=== PATIENT | male | born 1960 | race Caucasian/White ===

== ENCOUNTER 2016-07-10 13:11 | Observation (INO) | payer OTHER, MEDICARE ==
[~2016-07-10] VITALS: Ht 180.3 cm; Wt 65.1 kg
[2016-07-10 13:12] VITALS: BP 137/77; PULSE 85; RESP 14; TEMP 98.2; O2SAT 98
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
--- NOTE | 2016-07-10 17:56 | RADRPT ---
EXAM DATE/TIME: 07/10/2016 17:29 [facility] COMPARISON: No previous studies available for comparison. INDICATIONS : Chest pain. MEDICAL HISTORY : Chronic obstructive pulmonary disease. Myocardial infarction. Stroke. SURGICAL HISTORY : None. ENCOUNTER: Initial ACUITY: 1 day PAIN SCORE: 10 LOCATION: Bilateral chest FINDINGS: A single view of the chest demonstrates the lungs to be symmetrically aerated without evidence of mas s, infiltrate or effusion. The cardiomediastinal contours are unremarkable. CONCLUSION: 1. No acute findings. Previous plate and screw fixation left clavicle. Remote lower right rib fractur es. Wild Molina MD on July 10, 2016 at 17:53 Board Certified Radiologist. This report was verified electronically.
[2016-07-10 18:11] LABS: AUTOMATED NEUTROPHIL # 3.5 TH/MM3 (1.8-7.7); BASOPHIL # 0.1 TH/MM3 (0-0.2); BASOPHIL % 0.8 % (0.0-2.0); EOSINOPHIL # 0.1 TH/MM3 (0-0.4); EOSINOPHIL % 2.1 % (0.0-4.0); HEMATOCRIT 45.8 % (39.0-51.0); HEMO FLAGS DIFF FINAL; LYMPH % 36.3 % (9.0-44.0); LYMPHOCYTE # 2.6 TH/MM3 (1.0-4.8); MEAN CELL VOLUME 94.1 FL (80.0-100.0); MEAN CORPUSCULAR HEMOGLOBIN 31.2 PG (27.0-34.0); MEAN CORPUSCULAR HGB CONC 33.1 % (32.0-36.0); MONO % 12.1 % (0.0-8.0); NEUT % 48.7 % (16.0-70.0); PLATELET COUNT 192 TH/MM3 (150-450); RED BLOOD COUNT 4.87 MIL/MM3 (4.50-5.90); RED CELL DISTRIBUTION WIDTH 14.8 % (11.6-17.2); WHITE BLOOD COUNT 7.1 TH/MM3 (4.0-11.0)
[2016-07-10 18:16] LABS: BLOOD, URINE NEG (NEG); GLUCOSE,URINE NEG (NEG); KETONE, URINE NEG (NEG); NITRITE,URINE NEG (NEG); URINE COLOR LIGHT-YELLOW (YELLW/STRAW)
[2016-07-10 18:20] LABS: AMPHETAMINE, URINE NEG (NEG); APTT (PATIENT) 27.6 SEC (24.3-30.1); BARBITURATES, URINE POS (NEG); COCAINE, URINE NEG (NEG); INTERNATIONAL NORMALIZED RATIO 0.9 RATIO; PROTHROMBIN TIME - PATIENT 10.4 SEC (9.8-11.6)
[2016-07-10 18:26] LABS: COMMENT (UR) CATH-CULT NOT IND; CULTURE IF INDICATED CATH CULTURE NOT IND
[2016-07-10 18:31] LABS: ANION GAP 6 MEQ/L (5-15); AST (GOT) 15 U/L (15-37); BICARBONATE 25.4 MEQ/L (21.0-32.0); BLOOD UREA NITROGEN 11 MG/DL (7-18); CHLORIDE 108 MEQ/L (98-107); GLOMERULAR FILTRATION RATE 121 ML/MIN (>89); POTASSIUM 4.2 MEQ/L (3.5-5.1); SODIUM (NA) 139 MEQ/L (136-145)
[2016-07-10 18:36] LABS: ALKALINE PHOSPHATASE 125 U/L (45-117); ALT (GPT) 16 U/L (12-78); TOTAL BILIRUBIN ADULT 0.1 MG/DL (0.2-1.0)
[2016-07-10 18:42] LABS: CREATINE KINASE 93 U/L (39-308)
--- NOTE | 2016-07-10 19:12 | RADRPT ---
EXAM DATE/TIME: 07/10/2016 18:10 [facility] COMPARISON: No previous studies available for comparison. INDICATIONS : Extremity numbness. MEDICAL HISTORY : Hypertension. Chronic obstructive pulmonary disease. SURGICAL HISTORY : None. IM rodding right femur/ ENCOUNTER: Initial ACUITY: 2 day PAIN SCORE: 5/10 LOCATION: neck TECHNIQUE: Multiplanar, multisequence MRI examination of the cervical spine was performed. FINDINGS: VERTEBRAE: Normal vertebral body height. Homogeneous marrow signal. ALIGNMENT: No evidence of subluxation. CORD: There is abnormal T2 signal present within the cord centered at the C4-5 disc space level, presumably contusion or myelomalacia associated with prominent canal compromise. POST FOSSA: The cerebellar tonsils are normal in position. C2-C3: The thecal sac has a normal configuration. There is no evidence of disc herniation or spinal canal s tenosis. The neural foramina are patent bilaterally. C3-C4: Broad central to slightly left paracentral disc protrusion moderately indenting ventral thecal sac. M ild superimposed dorsal ligament hypertrophy contributing to mild concentric canal stenosis. C4-C5: Broad undulating dorsal disc protrusion, mildly eccentric to the right with severe canal stenosis exa cerbated by dorsal ligamentous hypertrophy. There is mild compressive deformity involving the cervica l cord and signal changes within the cord indicating contusion or myelomalacia. Moderate asymmetric r ight sided foraminal stenosis also present. C5-C6: No broad dorsal disc protrusion with slight indentation of ventral thecal sac. C6-C7: Slight broad dorsal disc protrusion with mild indentation of the ventral thecal sac. C7-T1: The thecal sac has a normal configuration. There is no evidence of disc herniation or spinal canal s tenosis. The neural foramina are patent bilaterally. CONCLUSION: Significant disc protrusion contributing to canal stenosis and cord compression at C4-5. Less severe changes at adjacent levels. See above Tremaine Quiros MD on July 10, 2016 at 19:07 Board Certified Radiologist. This report was verified electronically.
--- NOTE | 2016-07-10 19:14 | RADRPT ---
EXAM DATE/TIME: 07/10/2016 18:10 [facility] COMPARISON: No previous studies available for comparison. INDICATIONS : Extremity weakness. MEDICAL HISTORY : Hypertension. Chronic obstructive pulmonary disease. SURGICAL HISTORY : IM rodding rt femur/amputation rt lower leg ENCOUNTER: Initial ACUITY: 2 day PAIN SCORE: 3/10 LOCATION: thoracic TECHNIQUE: Multiplanar multisequence MRI of the thoracic spine was performed. FINDINGS: VERTEBRA: Normal vertebral body height. Homogeneous marrow signal. ALIGNMENT: Normal. CORD: Normal position and configuration. T1-T2: Normal. T2-T3: Broad mild right paracentral disc protrusion slightly indenting the thecal sac in the lateral recess region. Canal and foramina are adequate. T3-T4: The thecal sac has a normal diameter. No evidence of disc bulge or protrusion. T4-T5: The thecal sac has a normal diameter. No evidence of disc bulge or protrusion. T5-T6: The thecal sac has a normal diameter. No evidence of disc bulge or protrusion. T6-T7: The thecal sac has a normal diameter. No evidence of disc bulge or protrusion. T7-T8: Right paracentral disc protrusion mildly indenting the right lateral recess and producing mild asymme tric right-sided foraminal stenosis. Canal is adequate. T8-T9: The thecal sac has a normal diameter. No evidence of disc bulge or protrusion. T9-T10: Right paracentral disc protrusion moderately indent the thecal sac in the lateral recess and producin g mild asymmetric right-sided foraminal narrowing. T10-T11: The thecal sac has a normal diameter. No evidence of disc bulge or protrusion. T11-T12: The thecal sac has a normal diameter. No evidence of disc bulge or protrusion. T12-L1: The thecal sac has a normal diameter. No evidence of disc bulge or protrusion. CONCLUSION: Small multilevel disc protrusions as above. The lesions at T7-8 and T9-10 may produce right-sided rad icular symptoms. Tremaine Quiros MD on July 10, 2016 at 19:11 Board Certified Radiologist. This report was verified electronically.
--- NOTE | 2016-07-10 19:18 | RADRPT ---
EXAM DATE/TIME: 07/10/2016 18:10 [facility] COMPARISON: No previous studies available for comparison. INDICATIONS : Extremity numbness. MEDICAL HISTORY : Chronic obstructive pulmonary disease. Hypertension. SURGICAL HISTORY : IM rodding rt femur/BTK amputation rt leg. ENCOUNTER: Initial ACUITY: 2 day PAIN SCORE: 4/10 LOCATION: lumbar TECHNIQUE: Multiplanar multisequence MRI of the lumbar spine was performed without contrast. FINDINGS: Small bilateral renal cysts are noted. The most caudal appearing lumbar vertebra is numbered as L5. VERTEBRAE: Homogeneous signal. Normal alignment. CONUS: Normal level and configuration. T12-L1: The thecal sac has a normal diameter. No evidence of disc bulge or protrusion. The neural foramina are patent bilaterally. L1-L2: The thecal sac has a normal diameter. No evidence of disc bulge or protrusion. The neural foramina are patent bilaterally. L2-L3: Annular disc bulge with broad undulating dorsal disc protrusion producing moderate indentation of the thecal sac. Mild canal stenosis. The foramina appear adequate. L3-L4: Slight annular disc bulge without significant protrusion, canal or foraminal stenosis. L4-L5: The thecal sac has a normal diameter. No evidence of disc bulge or protrusion. The neural foramina are patent bilaterally. L5-S1: Severe disc degeneration with broad undulating dorsal disc protrusion producing mild indentation of t he thecal sac. Mild asymmetrically right-sided foraminal stenosis. Posterior facet arthropathy worse on the left than the right CONCLUSION: Moderate dorsal disc protrusion at L2-3 producing mild canal stenosis. Severe disc degeneration with broad protrusion at L5-S1 producing mild asymmetrically right-sided for aminal stenosis. Tremaine Quiros MD on July 10, 2016 at 19:13 Board Certified Radiologist. This report was verified electronically.
[2016-07-10 19:19] VITALS: BP 139/81; PULSE 56; RESP 16; O2SAT 95
[2016-07-10] MEDS ORDERED: MORPHINE SULFATE 4 MG/ML INJ IV PUSH ONE (20:45)
[2016-07-10] MEDS ORDERED: DEXAMETHASONE SOD PHOS 20 MG/5 ML VIAL IV PUSH ONE (20:45)
[2016-07-10] MEDS ORDERED: SODIUM CHLORIDE 0.9% FLUSH 5 ML FLUSH FLUSH PRN (21:30)
[2016-07-10] MEDS ORDERED: NALOXONE HCL 0.4 MG/ML AMP IV PRN (21:30)
[2016-07-10] MEDS ORDERED: MORPHINE SULFATE 4 MG/ML INJ IV PUSH PRN (21:45)
[2016-07-10] MEDS: PANTOPRAZOLE SODIUM 40 MG VIAL IV PUSH SCH (22:15)
[2016-07-10] MEDS: ONDANSETRON HCL 4 MG/2 ML VIAL IVP PRN (22:17)
[2016-07-11] MEDS: DEXAMETHASONE SOD PHOS 4 MG/ML VIAL IV PUSH SCH ×4 (00:24→19:47)
[2016-07-11] MEDS: HYDROmorphone HCL PF 1 MG/ML VIAL IV PUSH PRN ×4 (01:35→22:54)
[2016-07-11 02:08] VITALS: BP 131/76; PULSE 70; RESP 18; TEMP 98.1; O2SAT 98
[2016-07-11 04:54] VITALS: BP 115/73; PULSE 60; RESP 18; O2SAT 96
[2016-07-11] MEDS: ONDANSETRON HCL 4 MG/2 ML VIAL IVP PRN (04:54)
[2016-07-11 05:05] LABS: AUTOMATED NEUTROPHIL # 6.9 TH/MM3 (1.8-7.7); BASOPHIL % 0.3 % (0.0-2.0); EOSINOPHIL % 0.1 % (0.0-4.0); HEMATOCRIT 45.4 % (39.0-51.0); HEMO FLAGS DIFF FINAL; LYMPH % 7.2 % (9.0-44.0); LYMPHOCYTE # 0.5 TH/MM3 (1.0-4.8); MEAN CORPUSCULAR HEMOGLOBIN 31.4 PG (27.0-34.0); MEAN CORPUSCULAR HGB CONC 33.4 % (32.0-36.0); MONO % 1.7 % (0.0-8.0); NEUT % 90.7 % (16.0-70.0); PLATELET COUNT 182 TH/MM3 (150-450); RED BLOOD COUNT 4.83 MIL/MM3 (4.50-5.90); RED CELL DISTRIBUTION WIDTH 14.7 % (11.6-17.2); WHITE BLOOD COUNT 7.6 TH/MM3 (4.0-11.0)
[2016-07-11 05:25] LABS: BICARBONATE 23.8 MEQ/L (21.0-32.0); POTASSIUM 4.8 MEQ/L (3.5-5.1)
[2016-07-11 07:20] VITALS: BP 124/78; PULSE 76; RESP 17; TEMP 97.7; O2SAT 99
[2016-07-11] MEDS ORDERED: ACETAMINOPHEN/HYDROcodone 325 MG/5 MG TAB PO PRN ×2 (08:15→08:30)
[2016-07-11] MEDS ORDERED: HYDROmorphone HCL PF 1 MG/ML VIAL IV PRN ×3 (08:15→08:30)
[2016-07-11] MEDS ORDERED: ACETAMINOPHEN 325 MG TAB PO PRN ×3 (08:15→08:30)
[2016-07-11] MEDS ORDERED: MAGNESIUM HYDROXIDE SUSP 30 ML CUP PO PRN ×3 (08:15→14:30)
[2016-07-11] MEDS ORDERED: BISACODYL 10 MG SUPP PR PRN ×2 (08:15→08:30)
[2016-07-11] MEDS ORDERED: GLUCAGON 1 MG/ML VIAL OTHER PRN (08:30)
[2016-07-11] MEDS ORDERED: DEXTROSE 50% IN WATER 50 ML VIAL(D50) IV PUSH PRN (08:30)
[2016-07-11] MEDS ORDERED: SENNOSIDES 8.6 MG TAB PO PRN (08:30)
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
[2016-07-11] MEDS: PANTOPRAZOLE SODIUM 40 MG VIAL IV PUSH SCH ×2 (08:50→22:56)
[2016-07-11] MEDS: DOCUSATE SODIUM 100 MG CAP PO SCH ×3 (08:52→22:56)
[2016-07-11] MEDS ORDERED: SODIUM CHLORIDE 0.9% FLUSH 5 ML FLUSH FLUSH SCH (09:00)
[2016-07-11] MEDS ORDERED: RESP: ALBUTEROL 2.5 MG/3 ML NEB (SCH) ONE (10:13)
[2016-07-11] MEDS ORDERED: FAMOTIDINE 20 MG/2 ML VIAL ONE (10:21)
[2016-07-11] MEDS ORDERED: MIDAZOLAM HCL 2 MG/2 ML VIAL ONE (10:38)
[2016-07-11] MEDS ORDERED: THROMBIN (TOPICAL) 5,000 UNIT VIAL ONE (10:53)
[2016-07-11] MEDS ORDERED: BUPIVACAINE/EPINEPHRINE 0.5% 50 ML VIAL ONE (10:53)
[2016-07-11] MEDS ORDERED: VANCOMYCIN HCL 1000 MG VIAL ONE ×2 (10:53→11:28)
[2016-07-11] MEDS ORDERED: GELFOAM SIZE 100 ONE (10:54)
[2016-07-11] MEDS: INSULIN ASPART SUPPLEMENTAL SCALE SQ SCH ×4 (11:00→21:00)
--- NOTE | 2016-07-11 11:36 | EKG ---
Date Performed: 07/10/2016 Time Performed: 19:59:00 PTAGE: 56 years EKG: Sinus rhythm WITH OCCASIONAL VENTRICULAR PREMATURE COMPLEXES POSSIBLE LEFT ATRIAL ENLARGEMENT POSSIBLE RIGHT VENT RICULAR CONDUCTION DELAY BORDERLINE ECG NO PREVIOUS TRACING DOCTOR: Ariel Reese Interpretating Date/Time 07/11/2016 11:35:57
[2016-07-11] MEDS ORDERED: VANCOMYCIN HCL 1000 MG VIAL OTHER ONE (11:50)
[2016-07-11] MEDS ORDERED: ONDANSETRON HCL 4 MG/2 ML VIAL IV PUSH ONE (12:00)
[2016-07-11] MEDS ORDERED: LACTATED RINGER'S 1000 ML INJ 1,000 ML IV ONE (12:00)
[2016-07-11] MEDS ORDERED: PROPOFOL 200 MG/20 ML AMP IV ONE (12:00)
[2016-07-11 14:00] VITALS: BP 160/78; PULSE 80; RESP 16; TEMP 96.5; O2SAT 95
[2016-07-11] MEDS ORDERED: NS + KCL 20 MEQ INJ 1,000 ML IV SCH (14:17)
[2016-07-11] MEDS ORDERED: *RESP: ALBUTEROL 2.5 MG/3 ML NEB (PRN) PERIprocedural Use ONLY NEB ONE (14:21)
[2016-07-11] MEDS ORDERED: fentaNYL CITRATE 250 MCG/5 ML AMP ONE (14:24)
--- NOTE | 2016-07-11 14:24 | PD.OP ---
Rayshawn Dinh, Operative Report Date of Surgery: Jul 11, 2016 Preoperative Diagnosis: Severe cervical myelopathy from C3-4 and C4-5 the disc osteophyte complex with spinal cord compression Postoperative Diagnosis: Same Procedure: Anterior cervical C3-4 and C4-5 microdiscectomy with interbody fusion; anterior C3-5 cervical plate placement; C3-4 and C4-5 interbody cage placement; microsurgical technique Anesthesia: Gen. endotracheal by Muriel Castillo Surgeon: Dion Prakash M.D. Emergency Department Director(s): Jewell Caraballo Operation and Findings: Following administration of general endotracheal anesthesia, the patient received a gram of vancomycin and Decadron 10 mg intravenously. Sequential compression devices were placed in supine position on a Oli table and all pressure points adequately padded. The head secured in a donut and anterior cervical region then shaved and prepped with Chloraprep and sterilely draped with Ioban along with the usual sterile draping. A transverse skin incision on the left side of the neck was then made after infiltrating the skin with 0.5% Marcaine with epinephrine solution extending down through the platysma. At the anterior border of the sternocleidomastoid further dissection was undertaken developing a plane between the carotid sheath laterally and the trachea esophagus medially. The prevertebral fascia was exposed and dissected out. The medial attachments of the longus colli muscles were detached and a self- retaining retractor used for exposure. The C3-4 disc space was localized with a marking pin in the disc space and using lateral fluoroscopy. [place] distraction screws 14 mm length were placed one in the C3 and one in the C5 body for interbody distraction and exposure. There was significant disc degeneration with disc height collapse and anterior osteophytes noted at both levels and the osteophytes were resected with a Leksell and annulus incised with a 15 blade and further dissection undertaken using microtechnique with microscope magnification. Diskectomy was undertaken with pituitaries and the endplates were also decorticated with curettes and drill bit. And more posteriorly there was disk osteophyte complex compressing the thecal sac along with a significant uncovertebral joint hypertrophy with spinal and foraminal stenosis which was decompressed along with removal of the posterior longitudinal ligaments at both levels. The foramen was decompressed bilaterally using a Kerrison's and palpation with a nerve hook, the exiting nerve roots were felt to be free. The area was then copiously irrigated. I then placed a Peek cage packed with local autograft bone at the C3-4 and another at C4-5 interspace under fluoroscopy guidance. [place] distraction pins were removed and the holes plugged with Gelfoam for hemostasis. In order to facilitate the fusion and provide stabilization, a Precision spine cervical plate was then placed with two 14 mm variable angle screws in the C3 and C4 body and two 14 mm fixed angle screws in the C5 body. The plate screw locking mechanism was then engaged. AP and lateral fluoroscopy confirmed good placement of the construct and the retractor was then removed. Muscular bleeding points were cauterized with bipolar cautery and Gelfoam was then also used for hemostasis which was removed. The platysma was then approximated using 3-0 Vicryl interrupted stitches and 3-0 Vicryl subcuticular stitch also placed in an interrupted fashion, and final skin closure was with Mastisol and Steri-Strips. Sterile dressing was then applied. The patient was then extubated and taken to the recovery room. There are no intraoperative complications and all sponge and needle counts were correct at the end of procedure. Estimated blood loss was about 50 cc. The patient did undergo intraoperative neurologic monitoring which remained stable throughout the surgery. Dion Prakash MD Jul 11, 2016 14:24
[2016-07-11] MEDS ORDERED: CYCLOBENZAPRINE HCL 10 MG TAB PO PRN (14:30)
[2016-07-11] MEDS ORDERED: MAGNESIUM SULFATE INJ 2 GM in SODIUM CHLORIDE 0.9% INJ 100 ML IV PRN (14:30)
[2016-07-11] MEDS ORDERED: RESP: ALBUTEROL 2.5 MG/3 ML NEB (PRN) NEB (14:30)
[2016-07-11] MEDS ORDERED: ACETAMINOPHEN/HYDROcodone 325 MG/10 MG TAB PO PRN (14:30)
[2016-07-11] MEDS ORDERED: PROMETHAZINE INJ 25 MG/ML VIAL IM PRN (14:30)
[2016-07-11] MEDS ORDERED: DO NOT ADM ANY ANTICOAGULANT DRUGS XX PRN (14:30)
[2016-07-11] MEDS ORDERED: cloNIDine HCL 0.1 MG TAB PO PRN (14:30)
[2016-07-11] MEDS ORDERED: ALUMINUM/MAGNESIUM/SIMETH 30 ML CUP PO PRN (14:30)
[2016-07-11] MEDS ORDERED: SODIUM CHLORIDE 0.9% FLUSH 5 ML FLUSH IVF PRN (14:30)
[2016-07-11] MEDS ORDERED: CALCIUM GLUCONATE INJ 1 GM in SODIUM CHLORIDE 0.9% INJ 100 ML IV PRN (14:30)
[2016-07-11] MEDS ORDERED: MENTHOL LOZENGE SUCK-ON PRN (14:30)
[2016-07-11] MEDS ORDERED: POTASSIUM CHLOR 20 MEQ PREMIX 100 ML IV PRN (14:30)
[2016-07-11] MEDS ORDERED: ONDANSETRON HCL 4 MG/2 ML VIAL IV PRN (14:30)
[2016-07-11] MEDS ORDERED: ZOLPIDEM TARTRATE 5 MG TAB PO PRN (14:30)
[2016-07-11] MEDS ORDERED: *morphine SULFATE 8 MG/ML PERIprocedure ONLY ONE ×2 (14:59→15:17)
--- NOTE | 2016-07-11 15:32 | RADRPT ---
EXAM DATE/TIME: 07/11/2016 11:22 [place] COMPARISON: No previous studies available for comparison. INDICATIONS : Fusion C3,C4 and C4,C5 with screw and plate placement., MEDICAL HISTORY : Hypertension. Chronic obstructive pulmonary disease. Significant disc protrusion contributing to canal stenosis and cord compression at C4-5. SURGICAL HISTORY : IM rodding right femur/ ENCOUNTER: Subsequent ACUITY: 2 days PAIN SCORE: Non-responsive. LOCATION: Cervical spine. FINDINGS: There is anterior plate and screw fixation across C3-4-5. Normal alignment. No prevertebral swelling. Patient is intubated. CONCLUSION: 1. Plate and screw fixation across C3-4-5 with normal alignment. Wild Molina MD on July 11, 2016 at 15:29 Board Certified Radiologist. This report was verified electronically.
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
[2016-07-11] MEDS ORDERED: RESP: ALBUTEROL 2.5 MG/IPRATROPIUM 0.5 MG NEB (PRN) NEB (17:15)
[2016-07-11] MEDS: ACETAMINOPHEN/HYDROcodone 325 MG/10 MG TAB PO PRN (18:15)
[2016-07-11 20:00] VITALS: BP 137/79; PULSE 85; RESP 20; TEMP 96; O2SAT 93
[2016-07-11] MEDS ORDERED: DOCUSATE SODIUM 100 MG CAP PO SCH (21:00)
[2016-07-11] MEDS: SODIUM CHLORIDE 0.9% FLUSH 5 ML FLUSH IVF SCH (21:00)
[2016-07-11 21:48] LABS: HEMOGLOBIN A1a 1.1 %; HEMOGLOBIN A1b 0.8 %; HEMOGLOBIN Ao 85.4 %; HEMOGLOBIN F 1.1 %; HEMOGLOBIN LA1C 2.1 %; HEMOGLOBIN P3 3.9 %
[2016-07-12] VITALS: BP 128/71; PULSE 81; RESP 20; TEMP 97.9; O2SAT 94
[2016-07-12] MEDS: ACETAMINOPHEN/HYDROcodone 325 MG/10 MG TAB PO PRN ×2 (00:41→04:30)
[2016-07-12 04:00] VITALS: BP 128/75; PULSE 70; RESP 20; TEMP 97.6; O2SAT 99
[2016-07-12] MEDS: INSULIN ASPART SUPPLEMENTAL SCALE SQ SCH ×2 (07:00→11:00)
[2016-07-12 08:00] VITALS: BP 127/72; PULSE 75; RESP 18; TEMP 96.8; O2SAT 98
[2016-07-12 08:20] VITALS: PULSE 70
[2016-07-12] MEDS: SODIUM CHLORIDE 0.9% FLUSH 5 ML FLUSH IVF SCH (08:42)
[2016-07-12] MEDS: DOCUSATE SODIUM 100 MG CAP PO SCH (08:42)
[2016-07-12] MEDS: HYDROmorphone HCL PF 1 MG/ML VIAL IV PUSH PRN (08:43)
[2016-07-12] MEDS ORDERED: PANTOPRAZOLE SOD 40 MG DELAYED RELEASE TAB PO SCH (09:00)
--- NOTE | 2016-07-12 09:15 | HHI.NSPN ---
(Jack Villafana) History Chief Complaint: Mild incision discomfort. Improved strength. Paresthesias hands stable. (Jack Villafana) Interval History Pt underwent a C3/C4 and C4/C5 anterior cervical fusion with interbody cage and plate placement. He states he is doing very well and pleased with the results with improved strength in his right hand. He has stable paresthesias in his hands but states he understands this can take even up to a year to improve. He has a Adkins catheter in place that he wants removed. Cervical collar in place. He tolerated breakfast well. (Jack Villafana) Review of Systems General: Negative for: fever, chills, insomnia Respiratory: Negative for: shortness of breath, cough, sputum Cardiovascular: Negative for: chest pain Gastrointestinal: Negative for: nausea, vomitting, diarrhea, constipation ( Jack Villafana) Exam Results Vital Signs Date Time Temp Pulse Resp B/P Pulse Ox O2 Delivery O2 Flow Rate FiO2 07/12/16 04:00 97.6 70 20 128/75 99 07/11/16 18:02 Nasal Cannula 3.00 Intake and Output 07/11/16 07/11/16 07/11/16 07:59 15:59 23:59 Intake Total 1375 ml 720 ml Output Total 300 ml 50 ml Balance 1075 ml 670 ml (Jack Villafana) Physical Examination Resp: CTA bilaterally Heart: NSR no murmurs Abd: Soft positive bs Skin: Incision clean and dry. No signs of infection. Muscle: Moves UEs well. Right BKA. Pt ambulates short distances with prosthesis and walker. Neuro: Pt awake and alert. Follows commands well. Speech clear and appropriate. (Jack Villafana) Lab, Micro, Other Results 07/11/16 07/11/16 07/12/16 14:59 22:59 06:59 Intake Total 1200 ml 895 ml 240 ml Output Total 200 ml 150 ml 250 ml Balance 1000 ml 745 ml -10 ml Intake Oral 720 ml 240 ml IV Total 175 ml Other 1200 ml Output Urine Total 150 ml 150 ml 250 ml Estimated Blood Loss 50 ml # Voids 0 # Bowel Movements 0 0 (Jack Villafana) Medical Decision Making Impression and Plan A: 56 y/o M s/p C4/C5 and C5/C6 ACF with cervical plate placement P: Continue to monitor Continue with current care Rehab efforts, Rehab placement when bed available. D/C Adkins. (Jack Villafana) Attending Statement The exam, history, and the medical decision-making described in the above note were completed with the assistance of the mid-level provider. I reviewed and agree with the findings presented. I attest that I had a [id number] encounter with the patient on the same day, and personally performed and documented my assessment and findings in the medical record. (Dion Prakash MD) Jack Villafana Jul 12, 2016 09:15 Dion Prakash MD Jul 12, 2016 17:12
[2016-07-12] MEDS ORDERED: HYDR-3583 PO (09:28)
[2016-07-12] MEDS ORDERED: PANT40TA3 PO (09:28)
[2016-07-12] MEDS ORDERED: MILKSUS PO (09:28)
[2016-07-12] MEDS ORDERED: ACET325T PO (09:28)
[2016-07-12] MEDS ORDERED: MAG-LIQ PO (09:28)
[2016-07-12] MEDS ORDERED: SENN8.6T15 PO (09:28)
[2016-07-12] MEDS ORDERED: BISA10R PR (09:28)
[2016-07-12] MEDS ORDERED: DOCU1CAP39 PO (09:28)
[2016-07-12] MEDS ORDERED: CYCL1TAB29 PO (09:28)
[2016-07-12] MEDS ORDERED: WALKER WHEELS/F1 MIS (09:38)
[2016-07-12 10:45] VITALS: O2SAT 98
[2016-07-12 12:00] VITALS: BP 141/84; PULSE 71; RESP 19; TEMP 98.3; O2SAT 99
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
--- NOTE | 2016-07-12 13:34 | HHI.DCPOC ---
Discharge Care Plan Diagnosis: (1) Cervical cord compression with myelopathy Your Health Problems Are: Difficulty with ADL Exercise Tolerance Goals to Promote Your Health * To prevent worsening of your condition and complications * To maintain your health at the optimal level Directions to Meet Your Goals Take your medications as prescribed Follow your dietary instruction Follow activity as directed Keep your appointments as scheduled Take your immunizations and boosters as scheduled If your symptoms worsen call your PCP, if no PCP go to Urgent Care Center or Emergency Room Smoking is Dangerous to Your Health. Avoid second hand smoke Call the 24-hour hour crisis hotline for domestic abuse at Kamran Krishnan MD Jul 12, 2016 13:34
--- NOTE | 2016-07-12 13:34 | HHI.FF ---
Face to Face Verification Diagnosis: (1) Cervical cord compression with myelopathy Physical Therapy Order: Evaluate and Treat, Improve ambulation, Strength and gait training I have seen patient Wilfrid Merino on 07/12/16. My clinical findings support the need for the requested home health care services because: Ltd mobility - disease progression I certify that my clinical findings support that this patient is homebound because: Post-op weakness Kamran Krishnan MD Jul 12, 2016 13:34
[2016-07-13] MEDS ORDERED: INFLUENZA VIRUS VACCINE (QUADRIVALENT) 0.5 ML SYR IM ONE (10:00)
== END 2016-07-12 16:57 | disposition home health service (06) ==
LOC: NEPE 13:11 → NEDA 21:35 → INTOOBSV 07-11 14:22 → OBSVTOIN 07-11 14:22 → N05A 07-11 16:00 → UNDODISIN 07-12 16:57
PROVIDERS: ADMIT Internal Medicine; ATTEND Internal Medicine
DX: M50.021 Cervical disc disorder at C4-C5 level with myelopathy (principal); G95.29 Other cord compression; G95.89 Other specified diseases of spinal cord; M25.78 Osteophyte, vertebrae; M48.02 Spinal stenosis, cervical region; I50.9 Heart failure, unspecified; J44.9 Chronic obstructive pulmonary disease, unspecified; G89.4 Chronic pain syndrome; N39.41 Urge incontinence; F12.90 Cannabis use, unspecified, uncomplicated; F17.290 Nicotine dependence, other tobacco product, uncomplicated; I25.10 Atherosclerotic heart disease of native coronary artery without angina pectoris; I25.2 Old myocardial infarction; Z95.5 Presence of coronary angioplasty implant and graft; Z89.511 Acquired absence of right leg below knee; Z86.73 Personal history of transient ischemic attack (TIA), and cerebral infarction without residual deficits; Z87.820 Personal history of traumatic brain injury
CPT/HCPCS: 00600; 20936; 22551; 22552; 22853; 70450; 71010; 72040; 72141; 72146; 72148; 76000; 80048; 80053; 80307; 81001; 82550; 82948; 83036; 84484; 85025; 85610; 85730; 93005; 94150; 94664; 97163; 97167; 97530; 99285; C1713; C9113; G0378; G8987; G8988; J0690; J1100; J1170; J2250; J2270; J2405; J3010; J3370; J3480; J7120; J7613; L0150; L0172